=== PATIENT | female | born 1960 | race Caucasian/White ===

== ENCOUNTER 2021-11-16 15:13 | Emergency (ER) | payer MEDICARE, OTHER ==
[~2021-11-16] VITALS: Ht 157.5 cm; Wt 40.9 kg
[2021-11-16 15:15] VITALS: BP 107/68
[2021-11-16] MEDS ORDERED: TRAZ150T78 PO (16:02)
== END 2021-11-16 16:17 | disposition home or self-care (01) ==
LOC: ER 15:13
DX: F41.9 Anxiety disorder, unspecified (principal); F51.04 Psychophysiologic insomnia
CPT/HCPCS: 99283